=== PATIENT | male | born 1995 | race Caucasian/White ===

== ENCOUNTER 2017-10-18 19:30 | Emergency (ER) | payer OTHER ==
[~2017-10-18] VITALS: Ht 170.2 cm; Wt 59.0 kg
--- OUTSIDE RECORDS SUMMARY | 2017-10-18 19:35 | XMS REPORT | Clinical Summary ---
Author Author [facility] Organization [facility] Address [address] [place] [address] Phone Care Team Providers Care Inspector And Sorter Name Role Phone DEEPIKA ABURTO, KAYLENE PCP Conditions or Problems Problem Name Problem Code Onset Date Status Entry Date Provider Comment Standard Description Annotate SINUSITIS-ACUTE 71911861 (SNOMED CT) Inactive WILDA Cast Acute sinusitis Common migraine 14342476 (SNOMED CT) Active KAYLENE POE MD Migraine without aura Pharyngitis, acute 343755252 (SNOMED CT) Inactive Windy LY MD Acute pharyngitis SINUSITIS-ACUTE 14503364 (SNOMED CT) Inactive KAYLENE POE MD Acute sinusitis MEMORY LOSS 98074493 (SNOMED CT) Active Nicki Latham RN Amnesia SHOULDER PAIN, RIGHT M25.519 (ICD-10-CM) Active WILDA Cast Pain in unspecified shoulder COUGH 81051507 (SNOMED CT) Active Nicki Latham RN Cough PHARYNGITIS, ACUTE 892317675 (SNOMED CT) Inactive Nicki Latham RN Acute pharyngitis WELL ADOLESCENT EXAMINATION Z00.00 (ICD-10-CM) Active Gris Dye MA Encounter for general adult medical examination without abnormal findings ASTHMA, PERSISTENT, MODERATE 395337092 (SNOMED CT) Active 09/21 Gris Dye MA Moderate persistent asthma Medications Medication Instructions Start Date Stop Date Generic Name NDC Provider VENTOLIN HFA 108 (90 Base) MCG/ACT AERS TWO puffs every 4 hours as needed ALBUTEROL SULFATE 20868422935 KAYLENE POE MD PROAIR RESPICLICK 108 (90 Base) MCG/ACT AEPB Use 2 puffs every 4 hours as needed. ALBUTEROL SULFATE 77849632890 KAYLENE POE MD QVAR 80 MCG/ACT AERS Take 2 puffs twice daily BECLOMETHASONE DIPROPIONATE 56056444161 KAYLENE POE MD SINGULAIR 10 MG TABS Take one (1) tablet by mouth once a day 2015 MONTELUKAST SODIUM 13292660141 KAYLENE POE MD VENTOLIN HFA 108 (90 Base) MCG/ACT AERS TWO puffs every 4 hours as needed ALBUTEROL SULFATE 80608325750 KAYLENE POE MD DEPAKOTE 250 MG TBEC Take 1 in am and 2 at HS DIVALPROEX SODIUM 20586920392 KAYLENE POE MD SEROQUEL 25 MG TABS Take 1/2 tablet daily QUETIAPINE FUMARATE 62834688667 KAYLENE POE MD PREDNISONE 20 MG TABS Take TWO tabs in the morning and ONE tab at bedtime for 1 day, then one by mouth twice a day for 4 days PREDNISONE 99742566847 KAYLENE POE MD AMOXICILLIN-POT CLAVULANATE 875-125 MG TABS Take 1 tablet twice daily AMOXICILLIN-POT CLAVULANATE 16474035199 KAYLENE POE MD QVAR 80 MCG/ACT AERS Take 2 puffs twice daily BECLOMETHASONE DIPROPIONATE 68644815786 KAYLENE POE MD DEPAKOTE 250 MG TBEC Take ONE tablet twice a day for 1 week then 1 in am and 2 at HS DIVALPROEX SODIUM 94641199505 KAYLENE POE MD SEROQUEL 25 MG TABS Take ONE tablet daily QUETIAPINE FUMARATE 80605312860 KAYLENE POE MD LEXAPRO 10 MG TABS Take one tablet daily ESCITALOPRAM OXALATE 48854115284 KAYLENE POE MD AMOXICILLIN 500 MG CAPS Take 2 capsules twice daily until completed AMOXICILLIN 47922279954 KAYLENE POE MD FLUTICASONE PROPIONATE 50 MCG/ACT SUSP Use 1 spray to each nostril One or Two times daily. FLUTICASONE PROPIONATE 77975351360 KAYLENE POE MD ZYRTEC ALLERGY 10 MG TABS Take ONE tablet daily as needed CETIRIZINE HCL 58746632280 KAYLENE POE MD VENTOLIN HFA 108 (90 Base) MCG/ACT AERS TWO puffs every 4 hours as needed ALBUTEROL SULFATE 61947344989 KAYLENE POE MD QVAR 40 MCG/ACT AERS Use 2 puffs twice daily. BECLOMETHASONE DIPROPIONATE 84469228598 KAYLENE POE MD LORTAB 5-500 MG TABS one by mouth three times a day prn HYDROCODONE-ACETAMINOPHEN 61788579136 KAYLENE POE MD PREDNISONE 20 MG TABS Take TWO tabs in the morning and ONE tab at bedtime PREDNISONE 52204053457 KAYLENE POE MD EASIVENT MISC use with inhaler as prescribed. ( [employer] Nirmala please) RESPIRATORY THERAPY SUPPLIES 83249179745 KAYLENE POE MD PREDNISONE 20 MG TABS Take ONE tablet by mouth twice a day 09/13 PREDNISONE 04199601544 KAYLENE POE MD SINGULAIR 10 MG TABS Take one (1) tablet by mouth once a day 2013 MONTELUKAST SODIUM 73615207712 KAYLENE POE MD PREDNISONE 20 MG TABS Take ONE tablet by mouth twice a day 09/13 PREDNISONE 95432505043 KAYLENE POE MD SINGULAIR 10 MG TABS Take one (1) tablet by mouth once a day 2013 MONTELUKAST SODIUM 78466965489 KAYLENE POE MD VENTOLIN HFA 108 (90 Base) MCG/ACT AERS 2 puffs every 4 hours as needed 11/26 ALBUTEROL SULFATE 15470370578 KAYLENE POE MD ALBUTEROL SULFATE (2.5 MG/3ML) 0.083% NEBU Use 1 vial up to every four hours as needed ALBUTEROL SULFATE 96842825337 KAYLENE POE MD PREDNISONE 20 MG TABS Take ONE tablet by mouth twice a day for 3 to 5 days. PREDNISONE 74399407883 KAYLENE POE MD FLOVENT HFA 110 MCG/ACT AERO Use 2 puffs twice daily FLUTICASONE PROPIONATE HFA 16780489600 KAYLENE POE MD VENTOLIN HFA 108 (90 Base) MCG/ACT AERS TWO puffs every 4 hours as needed. PLEASE SCHEDULE PATIENT FOR A WELL CHECK UP PRIOR TO NEXT REFILL. ALBUTEROL SULFATE 04904243914 KAYLENE POE MD FLOVENT HFA 44 MCG/ACT AERO Use 2 puffs twice daily FLUTICASONE PROPIONATE HFA 46663527008 KAYLENE POE MD PREDNISONE 20 MG TABS Take ONE tablet by mouth twice a day for 5 days 09/21 PREDNISONE 15534666688 KAYLENE POE MD VENTOLIN HFA 108 (90 Base) MCG/ACT AERS TWO puffs every 4 hours as needed ALBUTEROL SULFATE 65853271507 KAYLENE POE MD FLOVENT HFA 110 MCG/ACT AERO Use 2 puffs twice daily FLUTICASONE PROPIONATE HFA 67958465453 WILDA Cast SINGULAIR 10 MG TABS Take one (1) tablet by mouth once a day 2013 MONTELUKAST SODIUM 70322369489 KAYLENE POE MD VENTOLIN HFA 108 (90 Base) MCG/ACT AERS 2 puffs every 4 hours as needed 11/26 ALBUTEROL SULFATE 45399616647 KAYLENE POE MD LORTAB 5-500 MG TABS one by mouth three times a day prn HYDROCODONE-ACETAMINOPHEN 29174130548 Nicki Latham RN SEROQUEL 25 MG TABS QUETIAPINE FUMARATE 43804193515 Nicki Latham, LEON Medications Administered No information available. Allergies, Adverse Reactions, Alerts Allergy Name Reaction Description Start Date Severity Status Provider ANNIA extreme anxiety Moderate Active WILDA Cast Results Date Name Value Unit Range Flag Description Office Visit: sore throat /ASTHMA/PHARYNGITIS RAPID STREP NEGATIVE RAPID STREP TEST Streptococcus pyogenes DNA [Presence] in Throat by Probe and target amplification method Vaccine Consent: Private Pay Vaccine CONSENTSIGND Yes consent signed Lab Report: STREP A CULTURE ONLY ZZ-GE-unk CULNEG GE use only - for LinkLogic import when terms are not otherwise specified Office Visit: 19 Yr Ck SMOK STATUS Never smoker Tobacco smoking status VAIS MEDS REVIEW LIST UP TO DATE Documentation of current medications (procedure) Rx Refill: eRx Request for VENTOLIN HFA 108 (90 BASE) MCG/ACT AERS [facility]_RR [id number]`VENTOLIN HFA 108 (90 BASE) MCG/ACT AERS`108 (90 BASE)``3 Unspecified``TWO PUFFS EVERY 4 HOURS NEEDED``3 `0`07/26/2015`07/27/2015`[facility]*`[id number]`` VENTOLIN HFA INH 18GM W/COUNT 90MCG Quantity: 54 Gram Instructions: USE 2 INHALATIONS EVERY 4 HOURS NEEDED B e-scripts messenger refill request Plan of Care Type Date Detail Appointment 02:45 PM KAYLENE POE MD, [address], [place], [address], Referral PT Eval and Treat TherapyNeri wright [place] Pending order Meningococcal conjugate vaccine, IM Pending order Administration INITIAL Vaccine Pending order Valproic acid Pending order Strep Group A Culture Pending order CBC with Differential Pending order Ferritin Level Pending order Comprehensive Metabolic panel Pending order Drug Screen, Urine Pending order Lactic Acid Pending order UA/CI (send out) Pending order Magnesium Level Pending order MRI, Head W/O Contrast Pending order CBC with Differential Pending order Culture, Blood Pending order C-Reactive Protein Pending order X-Ray, Shoulder 2 views Pending order Pertussis PCR Pending order Strep Group A Culture Pending order Strep Group A Culture Procedures Code Procedure Name Date Entry Date CPT-55213 Meningococcal conjugate vaccine, IM CPT-04867 Administration INITIAL Vaccine CPT-07392 Valproic acid CPT-64556 Rapid Strep Screen CPT-51309 Rapid Strep Screen CPT-08506 Strep Group A Culture CPT-82608 CBC with Differential CPT-59480 Ferritin Level CPT-75365 Comprehensive Metabolic panel CPT-64345 Drug Screen, Urine CPT-09245 Lactic Acid CPT-48541 UA/CI (send out) CPT-99547 Magnesium Level CPT-88759 MRI, Head W/O Contrast 56963 PT Eval and Treat CPT-69676 CBC with Differential CPT-23826 Culture, Blood CPT-36134 C-Reactive Protein CPT-79050 X-Ray, Shoulder 2 views CPT-51272 Pertussis PCR CPT-30232 Rapid Strep Screen CPT-15301 Strep Group A Culture CPT-68814 Strep Group A Culture Vital Signs Date Name Value Unit Description BMI (Body Mass Index) 19.98 kg/m2 Body Mass Index [Ratio] BP Diastolic 76 mm[Hg] blood pressure, diastolic - 8462-4 BP Systolic 120 mm[Hg] blood pressure, systolic - 8480-6 Heart Rate 92 /min pulse rate E&M - 8867-4 Height 67.75 [in_us] height E&M - 8302-2 Height 172.09 cm height in centimeters E&M Weight Measured 130 [lb_av] weight E&M - 3141-9 Weight Measured 59.09 kg weight in kilograms E&M O2 % BldC Oximetry 97 % oxygen saturation, oximetry Respiratory Rate 20 /min respiratory rate E&M - 9279-1
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
--- OUTSIDE RECORDS SUMMARY | 2017-10-18 19:36 | XMS REPORT | Clinical Summary ---
Author Author [facility] Organization [facility] Address [address] [place] [address] Phone Care Team Providers Care Laborer [employer] Name Role Phone DEEPIKA ABURTO, KAYLENE PCP Conditions or Problems Problem Name Problem Code Onset Date Status Entry Date Provider Comment Standard Description Annotate Encounter for routine adult health examination without abnormal findings Z00.00 (ICD-10-CM) Active KAYLENE POE MD Encounter for general adult medical examination without abnormal findings WELL ADOLESCENT EXAMINATION Z00.00 (ICD-10-CM) Resolved KAYLENE POE MD Encounter for general adult medical examination without abnormal findings COUGH 02018015 (SNOMED CT) Resolved KAYLENE POE MD Cough SHOULDER PAIN, RIGHT M25.519 (ICD-10-CM) Resolved KAYLENE POE MD Pain in unspecified shoulder MEMORY LOSS 88196568 (SNOMED CT) Resolved KAYLENE POE MD Amnesia SINUSITIS-ACUTE 61137440 (SNOMED CT) Inactive WILDA Cast Acute sinusitis Common migraine 54733182 (SNOMED CT) Active KAYLENE POE MD Migraine without aura Pharyngitis, acute 192953850 (SNOMED CT) Inactive Windy LY MD Acute pharyngitis SINUSITIS-ACUTE 00242883 (SNOMED CT) Inactive KAYLENE POE MD Acute sinusitis MEMORY LOSS 49644699 (SNOMED CT) Removed Nicki Latham RN Amnesia SHOULDER PAIN, RIGHT M25.519 (ICD-10-CM) Removed WILDA Cast Pain in unspecified shoulder COUGH 10654772 (SNOMED CT) Removed Nicki Latham RN Cough PHARYNGITIS, ACUTE 312570238 (SNOMED CT) Inactive Nicki Latham RN Acute pharyngitis WELL ADOLESCENT EXAMINATION Z00.00 (ICD-10-CM) Removed Gris Dye MA Encounter for general adult medical examination without abnormal findings ASTHMA, PERSISTENT, MODERATE 917667827 (SNOMED CT) Active 09/21 Gris Dye MA Moderate persistent asthma Medications Medication Instructions Start Date Stop Date Generic Name NDC Provider VENTOLIN HFA 108 (90 Base) MCG/ACT AERS TWO puffs every 4 hours as needed ALBUTEROL SULFATE 76411151425 KAYLENE POE MD QVAR 40 MCG/ACT AERS Use 2 puffs twice daily BECLOMETHASONE DIPROPIONATE 40847348385 KAYLENE POE MD VENTOLIN HFA 108 (90 Base) MCG/ACT AERS TWO puffs every 4 hours as needed ALBUTEROL SULFATE 20474666359 KAYLENE POE MD PROAIR RESPICLICK 108 (90 Base) MCG/ACT AEPB Use 2 puffs every 4 hours as needed. ALBUTEROL SULFATE 57114917544 KAYLENE POE MD QVAR 80 MCG/ACT AERS Take 2 puffs twice daily BECLOMETHASONE DIPROPIONATE 29581103732 KAYLENE POE MD SINGULAIR 10 MG TABS Take one (1) tablet by mouth once a day 2015 MONTELUKAST SODIUM 90515213360 KAYLENE POE MD VENTOLIN HFA 108 (90 Base) MCG/ACT AERS TWO puffs every 4 hours as needed ALBUTEROL SULFATE 30095497279 KAYLENE POE MD DEPAKOTE 250 MG TBEC Take 1 in am and 2 at HS DIVALPROEX SODIUM 78435252383 KAYLENE POE MD SEROQUEL 25 MG TABS Take 1/2 tablet daily QUETIAPINE FUMARATE 35324541737 KAYLENE POE MD PREDNISONE 20 MG TABS Take TWO tabs in the morning and ONE tab at bedtime for 1 day, then one by mouth twice a day for 4 days PREDNISONE 27697084515 KALYENE POE MD QVAR 80 MCG/ACT AERS Take 2 puffs twice daily BECLOMETHASONE DIPROPIONATE 22829142411 KAYLENE POE MD AMOXICILLIN-POT CLAVULANATE 875-125 MG TABS Take 1 tablet twice daily AMOXICILLIN-POT CLAVULANATE 27801634174 KAYLENE POE MD DEPAKOTE 250 MG TBEC Take ONE tablet twice a day for 1 week then 1 in am and 2 at HS DIVALPROEX SODIUM 26251034321 KAYLENE POE MD LEXAPRO 10 MG TABS Take one tablet daily ESCITALOPRAM OXALATE 28667050851 KAYLENE POE MD AMOXICILLIN 500 MG CAPS Take 2 capsules twice daily until completed AMOXICILLIN 92745544279 KAYLENE POE MD FLUTICASONE PROPIONATE 50 MCG/ACT SUSP Use 1 spray to each nostril One or Two times daily. FLUTICASONE PROPIONATE 66990964323 KAYLENE POE MD SEROQUEL 25 MG TABS Take ONE tablet daily QUETIAPINE FUMARATE 37330366397 KAYLENE POE MD ZYRTEC ALLERGY 10 MG TABS Take ONE tablet daily as needed CETIRIZINE HCL 57408055159 KAYLENE POE MD VENTOLIN HFA 108 (90 Base) MCG/ACT AERS TWO puffs every 4 hours as needed ALBUTEROL SULFATE 24760379747 KAYLENE POE MD QVAR 40 MCG/ACT AERS Use 2 puffs twice daily. BECLOMETHASONE DIPROPIONATE 05127748091 KAYLENE POE MD LORTAB 5-500 MG TABS one by mouth three times a day prn HYDROCODONE-ACETAMINOPHEN 05925603219 KAYLENE POE MD PREDNISONE 20 MG TABS Take TWO tabs in the morning and ONE tab at bedtime PREDNISONE 71831691089 KAYLENE POE MD EASIVENT MISC use with inhaler as prescribed. ( [employer] Nirmala please) RESPIRATORY THERAPY SUPPLIES 41794059311 KAYLENE POE MD PREDNISONE 20 MG TABS Take ONE tablet by mouth twice a day 09/13 PREDNISONE 40104458732 KAYLENE POE MD SINGULAIR 10 MG TABS Take one (1) tablet by mouth once a day 2013 MONTELUKAST SODIUM 18295615328 KAYLENE POE MD PREDNISONE 20 MG TABS Take ONE tablet by mouth twice a day 09/13 PREDNISONE 48742013788 KAYLENE POE MD SINGULAIR 10 MG TABS Take one (1) tablet by mouth once a day 2013 MONTELUKAST SODIUM 50029794445 KAYLENE POE MD VENTOLIN HFA 108 (90 Base) MCG/ACT AERS 2 puffs every 4 hours as needed 11/26 ALBUTEROL SULFATE 18932004607 KAYLENE POE MD ALBUTEROL SULFATE (2.5 MG/3ML) 0.083% NEBU Use 1 vial up to every four hours as needed ALBUTEROL SULFATE 16982710042 KAYLENE POE MD PREDNISONE 20 MG TABS Take ONE tablet by mouth twice a day for 3 to 5 days. PREDNISONE 54391246318 KAYLENE POE MD FLOVENT HFA 110 MCG/ACT AERO Use 2 puffs twice daily FLUTICASONE PROPIONATE HFA 88282941073 KAYLENE POE MD VENTOLIN HFA 108 (90 Base) MCG/ACT AERS TWO puffs every 4 hours as needed. PLEASE SCHEDULE PATIENT FOR A WELL CHECK UP PRIOR TO NEXT REFILL. ALBUTEROL SULFATE 63849056170 KAYLENE POE MD VENTOLIN HFA 108 (90 Base) MCG/ACT AERS TWO puffs every 4 hours as needed ALBUTEROL SULFATE 00114907023 KAYLENE POE MD FLOVENT HFA 44 MCG/ACT AERO Use 2 puffs twice daily FLUTICASONE PROPIONATE HFA 05627327895 KAYLENE POE MD PREDNISONE 20 MG TABS Take ONE tablet by mouth twice a day for 5 days 09/21 PREDNISONE 44909963571 KAYLENE POE MD SEROQUEL 25 MG TABS Take 1/2 tablet daily QUETIAPINE FUMARATE 21879842813 Geraldine Sanchez RN LORTAB 5-500 MG TABS one by mouth three times a day prn HYDROCODONE-ACETAMINOPHEN 84072102948 Nicki Latham RN SEROQUEL 25 MG TABS QUETIAPINE FUMARATE 23730715877 Nicki Latham RN DEPAKOTE 250 MG TBEC Take 1 in am and 2 at HS DIVALPROEX SODIUM 91148562055 Geraldine Sanchez RN FLOVENT HFA 110 MCG/ACT AERO Use 2 puffs twice daily FLUTICASONE PROPIONATE HFA 89190063378 WILDA Cast SINGULAIR 10 MG TABS Take one (1) tablet by mouth once a day 2013 MONTELUKAST SODIUM 88929614017 KAYLENE POE MD VENTOLIN HFA 108 (90 Base) MCG/ACT AERS 2 puffs every 4 hours as needed 11/26 ALBUTEROL SULFATE 81644756573 KAYLENE POE MD Medications Administered No information available. Allergies, Adverse Reactions, Alerts Allergy Name Reaction Description Start Date Severity Status Provider REGLAN extreme anxiety Moderate Active WILDA Cast Results [...] otherwise specified Office Visit: 19 Yr Ck MEDS REVIEW LIST UP TO DATE Documentation of current medications (procedure) Rx Refill: eRx Request for VENTOLIN HFA 108 (90 BASE) MCG/ACT AERS [facility]_ [id number]`VENTOLIN HFA 108 (90 BASE) MCG/ACT AERS`108 (90 BASE)``3 Unspecified``TWO PUFFS EVERY 4 HOURS NEEDED``3 `0`07/26/2015`07/27/2015`[facility]*`[id number]`` VENTOLIN HFA INH 18GM W/COUNT 90MCG Quantity: 54 Gram Instructions: USE 2 INHALATIONS EVERY 4 HOURS NEEDED B e-scripts messenger refill request Office Visit: 20 yr ck up SMOK STATUS Never smoker Tobacco smoking status ILIS Plan of Care Type Date Detail Referral PT Eval and Treat Kia [place], [place] Pending order HPV 9 Pending order Administration INITIAL Vaccine Pending order Meningococcal conjugate vaccine, IM Pending [...] Culture Pending order Strep Group A Culture Patient education Handouts/mdk/Clinical Visit Summary Procedures Code Procedure Name Date Entry Date CPT-39650 HPV 9 CPT-66790 Administration INITIAL Vaccine CPT-58204 Meningococcal conjugate vaccine, IM CPT-21577 Administration INITIAL Vaccine CPT-14528 Valproic acid CPT-83583 Rapid Strep Screen CPT-97698 Rapid Strep Screen CPT-22836 Strep Group A Culture CPT-18129 CBC with Differential CPT-40955 Ferritin Level CPT-52906 Comprehensive Metabolic panel CPT-06991 Drug Screen, Urine CPT-46952 Lactic Acid CPT-45395 UA/CI (send out) CPT-05471 Magnesium Level CPT-04024 MRI, Head W/O Contrast 81588 PT Eval and Treat CPT-95903 CBC with Differential CPT-80941 Culture, Blood CPT-57711 C-Reactive Protein CPT-32417 X-Ray, Shoulder 2 views CPT-24145 Pertussis PCR CPT-54816 Rapid Strep Screen CPT-35895 Strep Group A Culture CPT-81754 Strep Group A Culture Vital Signs Date Name Value Unit Description BMI (Body Mass Index) 19.00 kg/m2 Body Mass Index [Ratio] BP Diastolic 60 mm[Hg] blood pressure, diastolic - 8462-4 BP Systolic 102 mm[Hg] blood pressure, systolic - 8480-6 Heart Rate 80 /min pulse rate E&M - 8867-4 Height 68 [in_us] height E&M - 8302-2 Height 172.72 cm height in centimeters E&M Weight Measured 124.50 [lb_av] weight E&M - 3141-9 Respiratory Rate 20 /min respiratory rate E&M - 9279-1
--- OUTSIDE RECORDS SUMMARY | 2017-10-18 19:36 | XMS REPORT | Clinical Summary ---
Author Author [facility] Organization [facility] Address [address] [place] [address] Phone Care Team Providers Care Scientific Editor Name Role Phone DEEPIKA ABURTO, KAYLENE PCP Conditions or Problems Problem Name Problem Code Onset Date Status Entry Date Provider Comment Standard Description Annotate SINUSITIS-ACUTE 67519358 (SNOMED CT) Inactive WILDA Cast Acute sinusitis Common migraine 77346058 (SNOMED CT) Active KAYLENE POE MD Migraine without aura Pharyngitis, acute 898818316 (SNOMED CT) Inactive Windy LY MD Acute pharyngitis SINUSITIS-ACUTE 54846568 (SNOMED CT) Inactive KAYLENE POE MD Acute sinusitis MEMORY LOSS 18529364 (SNOMED CT) Active Nicki Latham RN Amnesia SHOULDER PAIN, RIGHT M25.519 (ICD-10-CM) Active WILDA Cast Pain in unspecified shoulder COUGH 90622892 (SNOMED CT) Active Nicki Latham RN Cough PHARYNGITIS, ACUTE 677336767 (SNOMED CT) Inactive Nicki Latham RN Acute pharyngitis WELL ADOLESCENT EXAMINATION Z00.00 (ICD-10-CM) Active Gris Dye MA Encounter for general adult medical examination without abnormal findings ASTHMA, PERSISTENT, MODERATE 951446017 (SNOMED CT) Active 09/21 Gris Dye MA Moderate persistent asthma Medications Medication Instructions Start Date Stop Date Generic Name NDC Provider VENTOLIN HFA 108 (90 Base) MCG/ACT AERS TWO puffs every 4 hours as needed ALBUTEROL SULFATE 72359794073 KAYLENE POE MD PROAIR RESPICLICK 108 (90 Base) MCG/ACT AEPB Use 2 puffs every 4 hours as needed. ALBUTEROL SULFATE 85048049717 KAYLENE POE MD QVAR 80 MCG/ACT AERS Take 2 puffs twice daily BECLOMETHASONE DIPROPIONATE 55288429531 KAYLENE POE MD SINGULAIR 10 MG TABS Take one (1) tablet by mouth once a day 2015 MONTELUKAST SODIUM 72900945109 KAYLENE POE MD VENTOLIN HFA 108 (90 Base) MCG/ACT AERS TWO puffs every 4 hours as needed ALBUTEROL SULFATE 01298502627 KAYLENE POE MD DEPAKOTE 250 MG TBEC Take 1 in am and 2 at HS DIVALPROEX SODIUM 28940636892 KAYLENE POE MD SEROQUEL 25 MG TABS Take 1/2 tablet daily QUETIAPINE FUMARATE 13040281467 KAYLENE POE MD PREDNISONE 20 MG TABS Take TWO tabs in the morning and ONE tab at bedtime for 1 day, then one by mouth twice a day for 4 days PREDNISONE 66070886375 KAYLENE POE MD AMOXICILLIN-POT CLAVULANATE 875-125 MG TABS Take 1 tablet twice daily AMOXICILLIN-POT CLAVULANATE 58298938574 KAYLENE POE MD QVAR 80 MCG/ACT AERS Take 2 puffs twice daily BECLOMETHASONE DIPROPIONATE 87059398469 KAYLENE POE MD DEPAKOTE 250 MG TBEC Take ONE tablet twice a day for 1 week then 1 in am and 2 at HS DIVALPROEX SODIUM 83044449081 KAYLENE POE MD SEROQUEL 25 MG TABS Take ONE tablet daily QUETIAPINE FUMARATE 37926944366 KAYLENE POE MD LEXAPRO 10 MG TABS Take one tablet daily ESCITALOPRAM OXALATE 03661304761 KAYLENE POE MD AMOXICILLIN 500 MG CAPS Take 2 capsules twice daily until completed AMOXICILLIN 34728270181 KAYLENE POE MD FLUTICASONE PROPIONATE 50 MCG/ACT SUSP Use 1 spray to each nostril One or Two times daily. FLUTICASONE PROPIONATE 45894975836 KAYLENE POE MD ZYRTEC ALLERGY 10 MG TABS Take ONE tablet daily as needed CETIRIZINE HCL 94839103090 KAYLENE POE MD VENTOLIN HFA 108 (90 Base) MCG/ACT AERS TWO puffs every 4 hours as needed ALBUTEROL SULFATE 29224573252 KAYLENE POE MD QVAR 40 MCG/ACT AERS Use 2 puffs twice daily. BECLOMETHASONE DIPROPIONATE 11684472469 KAYLENE POE MD LORTAB 5-500 MG TABS one by mouth three times a day prn HYDROCODONE-ACETAMINOPHEN 25314588368 KAYLENE POE MD PREDNISONE 20 MG TABS Take TWO tabs in the morning and ONE tab at bedtime PREDNISONE 96044514125 KAYLENE POE MD EASIVENT MISC use with inhaler as prescribed. ( [place] Nirmala please) RESPIRATORY THERAPY SUPPLIES 30797659803 KAYLENE POE MD PREDNISONE 20 MG TABS Take ONE tablet by mouth twice a day 09/13 PREDNISONE 60820984382 KAYLENE POE MD SINGULAIR 10 MG TABS Take one (1) tablet by mouth once a day 2013 MONTELUKAST SODIUM 57318185237 KAYLENE POE MD PREDNISONE 20 MG TABS Take ONE tablet by mouth twice a day 09/13 PREDNISONE 86022545500 KAYLENE POE MD SINGULAIR 10 MG TABS Take one (1) tablet by mouth once a day 2013 MONTELUKAST SODIUM 78198239230 KAYLENE POE MD VENTOLIN HFA 108 (90 Base) MCG/ACT AERS 2 puffs every 4 hours as needed 11/26 ALBUTEROL SULFATE 70791256457 KAYLENE POE MD ALBUTEROL SULFATE (2.5 MG/3ML) 0.083% NEBU Use 1 vial up to every four hours as needed ALBUTEROL SULFATE 29413506020 KAYLENE POE MD PREDNISONE 20 MG TABS Take ONE tablet by mouth twice a day for 3 to 5 days. PREDNISONE 68894755499 KAYLENE POE MD FLOVENT HFA 110 MCG/ACT AERO Use 2 puffs twice daily FLUTICASONE PROPIONATE HFA 47664457661 KAYLENE POE MD VENTOLIN HFA 108 (90 Base) MCG/ACT AERS TWO puffs every 4 hours as needed. PLEASE SCHEDULE PATIENT FOR A WELL CHECK UP PRIOR TO NEXT REFILL. ALBUTEROL SULFATE 66390087587 KAYLENE POE MD FLOVENT HFA 44 MCG/ACT AERO Use 2 puffs twice daily FLUTICASONE PROPIONATE HFA 41673125638 KAYLENE POE MD PREDNISONE 20 MG TABS Take ONE tablet by mouth twice a day for 5 days 09/21 PREDNISONE 25945151774 KAYLENE POE MD VENTOLIN HFA 108 (90 Base) MCG/ACT AERS TWO puffs every 4 hours as needed ALBUTEROL SULFATE 78410067240 KAYLENE POE MD FLOVENT HFA 110 MCG/ACT AERO Use 2 puffs twice daily FLUTICASONE PROPIONATE HFA 82969467805 WILDA Cast SINGULAIR 10 MG TABS Take one (1) tablet by mouth once a day 2013 MONTELUKAST SODIUM 74133943265 KAYLNEE POE MD VENTOLIN HFA 108 (90 Base) MCG/ACT AERS 2 puffs every 4 hours as needed 11/26 ALBUTEROL SULFATE 24855313855 KAYLENE POE MD LORTAB 5-500 MG TABS one by mouth three times a day prn HYDROCODONE-ACETAMINOPHEN 01273278639 Nicki Latham RN SEROQUEL 25 MG TABS QUETIAPINE FUMARATE 53522382126 Nicki Latham, LEON Medications Administered No information [...] SMOK STATUS Never smoker Tobacco smoking status TXIS MEDS REVIEW LIST UP TO DATE Documentation of current medications (procedure) Rx Refill: eRx Request for VENTOLIN HFA 108 (90 BASE) MCG/ACT AERS [facility]_RR [id number]`VENTOLIN HFA 108 (90 BASE) MCG/ACT AERS`108 (90 BASE)``3 Unspecified``TWO PUFFS EVERY 4 HOURS NEEDED``3 `0`07/26/2015`07/27/2015`[facility]*`[id number]`` VENTOLIN HFA INH 18GM W/COUNT 90MCG Quantity: 54 Gram Instructions: USE 2 INHALATIONS EVERY 4 HOURS NEEDED B e-scripts messenger refill request Plan of Care Type Date Detail Referral PT Eval and Treat Neri Adam [place] Pending order Meningococcal conjugate vaccine, IM [...] Procedures Code Procedure Name Date Entry Date CPT-84436 Meningococcal conjugate vaccine, IM CPT-47141 Administration INITIAL Vaccine CPT-04894 Valproic acid CPT-47157 Rapid Strep Screen CPT-98927 Rapid Strep Screen CPT-57534 Strep Group A Culture CPT-88156 CBC with Differential CPT-75980 Ferritin Level CPT-76611 Comprehensive Metabolic panel CPT-58533 Drug Screen, Urine CPT-78453 Lactic Acid CPT-34944 UA/CI (send out) CPT-10996 Magnesium Level CPT-43798 MRI, Head W/O Contrast 01441 PT Eval and Treat CPT-96819 CBC with Differential CPT-93320 Culture, Blood CPT-97023 C-Reactive Protein CPT-09932 X-Ray, Shoulder 2 views CPT-11875 Pertussis PCR CPT-78919 Rapid Strep Screen CPT-04192 Strep Group A Culture CPT-82021 Strep Group A Culture Vital Signs Date [...]
[2017-10-18] MEDS ORDERED: RT-ALBUTEROL/IPRATROPIUM 3 ML (DUONEB) VIAL INH ONE ×2 (19:45→20:45)
[2017-10-18] MEDS ORDERED: methylPREDNISolone 125 MG (Solu-MEDROL) VIAL IVP ONE (19:45)
[2017-10-18] MEDS ORDERED: KETOROLAC 30 MG/ML VIAL IVP ONE (19:45)
--- NOTE | 2017-10-18 19:51 | ED Chest Pain ---
General Stated Complaint: CHEST PAIN Source: patient Exam Limitations: no limitations History of Present Illness Date Seen by Provider: Oct 18, 2017 Time Seen by Provider: 19:49 Initial Comments To ER with reports of central chest pain sharp in character associated with shortness of breath. This began a couple of hours ago and has gotten progressively worse. History of asthma. No fevers or chills. No palpitations but was recently diagnosed with SVT and is currently wearing an event monitor. This is a biological male in transition to female, on spironolactone and estradiol. Prefers to be called Tosin. Denies any unilateral leg swelling. Severity/Quality: moderate Allergies and Home Medications Allergies Coded Allergies: No Known Drug Allergies (Unverified , 10/18/17) Patient Home Medication List Home Medication List Reviewed: Yes Review of Systems Review of Systems Constitutional: see HPI; No chills, No fever EENTM: No Symptoms Reported Respiratory: See HPI, Cough, Shortness of Air, Wheezing Cardiovascular: See HPI, Chest Pain Gastrointestinal: See HPI Genitourinary: No Symptoms Reported Musculoskeletal: no symptoms reported Skin: no symptoms reported Psychiatric/Neurological: No Symptoms Reported Endocrine: No Symptoms Reported Hematologic/Lymphatic: No Symptoms Reported Past Zqgowwr-Bsxzsc-Zmbrly Hx Patient Social History Recent Foreign Travel: No Contact w/Someone Who Travel: No Physical Exam Vital Signs Vital Signs - First Documented 10/18/17 19:46 Pulse Ox 97 O2 Delivery Room Air Capillary Refill : Height, Weight, BMI Height: '" Weight: lbs. oz. kg; BMI Method: General Appearance: No Apparent Distress, WD/WN, Anxious (very tearful, speaks very softly and does not make eye contact.) HEENT: PERRL/EOMI, TMs Normal Neck: Full Range of Motion, Normal Inspection Respiratory: No Accessory Muscle Use, No Respiratory Distress, Decreased Breath Sounds Cardiovascular: Regular Rate, Rhythm, Normal Peripheral Pulses Gastrointestinal: Normal Bowel Sounds, Non Tender, Soft Extremity: Normal Capillary Refill, Normal Inspection, No Pedal Edema Neurologic/Psychiatric: Alert, Oriented x3 Skin: Normal Color, Warm/Dry Progress/Results/Core Measures Results/Orders Lab Results Laboratory Tests Test 10/18/17 19:43 Range/Units White Blood Count 9.8 4.3-11.0 10^3/uL Red Blood Count 4.72 4.35-5.85 10^6/uL Hemoglobin 14.9 13.3-17.7 G/DL Hematocrit 42 40-54 % Mean Corpuscular Volume 88 80-99 FL Mean Corpuscular Hemoglobin 32 25-34 PG Mean Corpuscular Hemoglobin Concent 36 32-36 G/DL Red Cell Distribution Width 12.8 10.0-14.5 % Platelet Count 283 130-400 10^3/uL Mean Platelet Volume 10.0 7.4-10.4 FL Neutrophils (%) (Auto) 45 42-75 % Lymphocytes (%) (Auto) 34 12-44 % Monocytes (%) (Auto) 8 0-12 % Eosinophils (%) (Auto) 13 H 0-10 % Basophils (%) (Auto) 1 0-10 % Neutrophils # (Auto) 4.4 1.8-7.8 X 10^3 Lymphocytes # (Auto) 3.3 1.0-4.0 X 10^3 Monocytes # (Auto) 0.8 0.0-1.0 X 10^3 Eosinophils # (Auto) 1.3 H 0.0-0.3 10^3/uL Basophils # (Auto) 0.1 0.0-0.1 10^3/uL D-Dimer 0.24 0.00-0.49 UG/ML Sodium Level 139 135-145 MMOL/L Potassium Level 4.1 3.6-5.0 MMOL/L Chloride Level 104 98-107 MMOL/L Carbon Dioxide Level 24 21-32 MMOL/L Anion Gap 11 5-14 MMOL/L Blood Urea Nitrogen 11 7-18 MG/DL Creatinine 0.75 0.60-1.30 MG/DL Estimat Glomerular Filtration Rate > 60 BUN/Creatinine Ratio 15 Glucose Level 66 L 70-105 MG/DL Calcium Level 9.4 8.5-10.1 MG/DL Corrected Calcium 9.1 8.5-10.1 MG/DL Total Bilirubin 0.6 0.1-1.0 MG/DL Aspartate Amino Transf (AST/SGOT) 21 5-34 U/L Alanine Aminotransferase (ALT/SGPT) 22 0-55 U/L Alkaline Phosphatase 90 40-136 U/L Total Protein 6.4 6.4-8.2 GM/DL Albumin 4.4 3.2-4.5 GM/DL My Orders Orders - CESAR VERONICA [employer] DISPOSAL AGENT Cbc With Automated Diff (10/18/17 19:38) Comprehensive Metabolic Panel (10/18/17 19:38) Fibrin Degradation Products (10/18/17 19:38) Chest Pa/Lat (2 View) (10/18/17 19:38) Iv Heplock-Insert (Order) (10/18/17 19:38) Methylprednisolone Sod Succ (Solu-Medrol (10/18/17 19:45) Albuterol/Ipra Inhalation Soln (Duoneb I (10/18/17 19:45) Svn Small Volume Nebulizer (10/18/17 19:38) Lorazepam Injection (Ativan Injection) (10/18/17 19:45) Ketorolac Injection (Toradol Injection) (10/18/17 19:45) Lorazepam Injection (Ativan Injection) (10/18/17 20:15) Medications Given in ED Current Medications Medications Dose Ordered Sig/Venkatesh Route Start Time Stop Time Status Last Admin Dose Admin Albuterol/ Ipratropium 3 ml ONCE ONCE INH 10/18/17 19:45 10/18/17 19:46 DC 10/18/17 19:46 3 ML Ketorolac Tromethamine 30 mg ONCE ONCE IVP 10/18/17 19:45 10/18/17 19:46 DC 10/18/17 19:56 30 MG Lorazepam 0.5 mg ONCE PRN IVP 10/18/17 19:45 10/18/17 20:03 0.5 MG Methylprednisolone Sodium Succinate 125 mg ONCE ONCE IVP 10/18/17 19:45 10/18/17 19:46 DC 10/18/17 19:56 125 MG Vital Signs/I&O 10/18/17 19:46 Pulse Ox 97 O2 Delivery Room Air Departure Communication (Admissions) 2034-patient is still tearful. Refuses a second dose of Ativan and states that she only needs her emotional support dog Impression Primary Impression: Asthma exacerbation Additional Impressions: Chest pain Anxiety Disposition: 01 HOME, SELF-CARE Condition: Stable Departure-Patient Inst. Decision time for Depature: 20:38 Referrals: NO,LOCAL PHYSICIAN (PCP/Family) Primary Care Physician Patient Instructions: Asthma in Adults, Chest Pain Add. Discharge Instructions: 1. Return to ER for any concerns 2. Follow-up with your doctor next week 3. Steroids as directed. Inhaler 2 puffs every 4 hours and additional 2 puffs every 2 hours as needed. Scripts Prednisone (Prednisone) 20 Mg Tab 40 MG PO ONCE, #6 TAB Prov: CESAR VERONICA APRN 10/18/17 CESAR VERONICA APRN Oct 18, 2017 19:51
[2017-10-18] MEDS: LORazepam INJ 2 MG/ML (ATIVAN) VIAL IVP PRN ×3 (19:55→20:35)
[2017-10-18] MEDS ORDERED: LORazepam INJ 2 MG/ML (ATIVAN) VIAL IVP PRN (20:15)
[2017-10-18 20:16] LABS: BASOPHILS # (AUTO) 0.1 10^3/uL (0.0-0.1); BASOPHILS % (AUTO) 1 % (0-10); EOSINOPHILS # (AUTO) 1.3 10^3/uL (0.0-0.3); EOSINOPHILS % (AUTO) 13 % (0-10); HEMATOCRIT 42 % (40-54); HEMOGLOBIN 14.9 G/DL (13.3-17.7); LYMPHOCYTES # (AUTO) 3.3 X 10^3 (1.0-4.0); LYMPHOCYTES % (AUTO) 34 % (12-44); MEAN CORPUSCULAR HEMOGLOBIN 32 PG (25-34); MEAN CORPUSCULAR HGB CONC 36 G/DL (32-36); MEAN CORPUSCULAR VOLUME 88 FL (80-99); MONOCYTES # (AUTO) 0.8 X 10^3 (0.0-1.0); MONOCYTES % (AUTO) 8 % (0-12); NEUTROPHILS # (AUTO) 4.4 X 10^3 (1.8-7.8); NEUTROPHILS % (AUTO) 45 % (42-75); PLATELET COUNT 283 10^3/uL (130-400); RED BLOOD COUNT 4.72 10^6/uL (4.35-5.85); RED CELL DISTRIBUTION WIDTH 12.8 % (10.0-14.5); WHITE BLOOD COUNT 9.8 10^3/uL (4.3-11.0)
--- NOTE | 2017-10-18 20:32 | Diagnostic Imaging Report ---
EXAMINATION: Chest (PA and lateral). CLINICAL INDICATION: 21-year-old male, cough, chest pain. COMPARISON: None. FINDINGS: Heart size and mediastinal contours are unremarkable. There is no identified pneumothorax. There is no pleural effusion. There is no identified focal airspace consolidation. IMPRESSION: No identified acute cardiopulmonary abnormality. Dictated by: Dictated on workstation # [id number]
[2017-10-18 20:35] LABS: ALANINE AMINOTRANSFERASE 22 U/L (0-55); ALBUMIN 4.4 GM/DL (3.2-4.5); ALKALINE PHOSPHATASE 90 U/L (40-136); BILIRUBIN,TOTAL 0.6 MG/DL (0.1-1.0); BUN/CREATININE RATIO 15; CALCIUM 9.4 MG/DL (8.5-10.1); CARBON DIOXIDE 24 MMOL/L (21-32); CHLORIDE 104 MMOL/L (98-107); CREATININE SERUM 0.75 MG/DL (0.60-1.30); GFR ESTIMATED > 60; GLUCOSE 66 MG/DL (70-105); POTASSIUM 4.1 MMOL/L (3.6-5.0); SODIUM 139 MMOL/L (135-145); TOTAL PROTEIN 6.4 GM/DL (6.4-8.2)
[2017-10-18] MEDS ORDERED: PRD20T PO (20:39)
== END 2017-10-18 22:00 | disposition home or self-care (01) ==
LOC: EDUNIT# 19:30 → ER 19:32
DX: J45.901 Unspecified asthma with (acute) exacerbation (principal); R07.89 Other chest pain; F41.9 Anxiety disorder, unspecified
CPT/HCPCS: 36415; 71046; 80053; 85025; 85379; 94640; 96374; 96375

== ENCOUNTER 2017-10-30 08:53 | Outpatient (RCR) | payer OTHER ==
[~2017-10-30 08:53] MED LIST: PRD20T PO
== END 2017-11-04 | disposition home or self-care (01) ==
LOC: CARD 08:53
PROVIDERS: ATTEND Internal Medicine
DX: R55 Syncope and collapse (principal); I47.1 Supraventricular tachycardia
CPT/HCPCS: 93270

== ENCOUNTER 2017-11-17 12:00 | Outpatient (RCR) | payer OTHER ==
[2017-11-21] MEDS ORDERED: PRD20T PO ×2 (15:27→15:47)
[2017-11-21] MEDS ORDERED: ESTR2TAB (15:41)
[2017-11-21] MEDS ORDERED: ALBU18HF2 (15:41)
[2017-11-21] MEDS ORDERED: SPIR100T4 (15:41)
[2017-11-21] MEDS ORDERED: DULO30CA48 (15:41)
== END 2018-02-03 ==
LOC: CARD 12:00
PROVIDERS: ATTEND Internal Medicine
DX: R55 Syncope and collapse (principal); I47.1 Supraventricular tachycardia

== ENCOUNTER 2017-11-21 15:20 | Emergency (ER) | payer OTHER ==
[~2017-11-21] VITALS: Ht 170.2 cm; Wt 59.0 kg
[~2017-11-21 15:20] MED LIST changes: +RT-ALBUTEROL/IPRATROPIUM 3 ML (DUONEB) VIAL ONE; +methylPREDNISolone 125 MG (Solu-MEDROL) VIAL ONE
--- OUTSIDE RECORDS SUMMARY | 2017-11-21 15:25 | XMS REPORT | Continuity of Care Document ---
Author Author [facility] Organization [facility] Address Unknown Phone Unavailable Allergies Active Description Code Type Severity Reaction Onset Reported/Identified Relationship to Patient Clinical Status Yes Reglan Drug N/A N/ A Yes METOCLOPRAMIDE 4868 DRUG INGREDI N/A Other 01/14/2014 Yes No Known Drug Allergies [id number] Drug Allergy Unknown N/A 10/18/2017 Medications There is no data. Problems Date [...] routine adult health examination without abnormal findings 10/18/2017 CESAR VERONICA APRN Ot F41.9 ANXIETY DISORDER, UNSPECIFIED 10/18/2017 CESAR VERONICA WAREHOUSE P[employer]AGING SUPERVISOR Ot J45.901 UNSPECIFIED ASTHMA WITH (ACUTE) EXACERBA 10/18/2017 CESAR VERONICA APRN Ot R07.89 OTHER CHEST PAIN 10/22/2017 CESAR VERONICA APRN Ot F41.9 ANXIETY DISORDER, UNSPECIFIED 10/22/2017 CESAR VERONICA [employer]HOU[employer] P[employer]AGING SUPERVISOR Ot J45.901 UNSPECIFIED ASTHMA WITH (ACUTE) EXACERBA 10/22/2017 CESAR VERONICA [employer]HOUSE P[employer]AGING SUPERVISOR Ot R07.89 OTHER CHEST PAIN 11/04/2017 SHERRELL ABURTO, MASHA Zamora Ot I47.1 SUPRAVENTRICULAR TACHYCARDIA 11/04/2017 SHERRELL ABURTO, MASHA Zamora Ot R55 SYNCOPE AND COLLAPSE Procedures There is no data. Results Test Result Range Complete blood count (CBC) with automated white blood cell (WBC) differential - 10/18/17 19:43 Blood leukocytes automated count (number/volume) 9.8 10*3/uL 4.3-11.0 Blood erythrocytes automated count (number/volume) 4.72 10*6/uL 4.35-5.85 Venous blood hemoglobin measurement (mass/volume) 14.9 g/dL 13.3-17.7 Blood hematocrit (volume fraction) 42 % 40-54 Automated erythrocyte mean corpuscular volume 88 [foz_us] 80-99 Automated erythrocyte mean corpuscular hemoglobin (mass per erythrocyte) 32 pg 25-34 Automated erythrocyte mean corpuscular hemoglobin concentration measurement ( mass/volume) 36 g/dL 32-36 Automated erythrocyte distribution width ratio 12.8 % 10.0-14.5 Automated blood platelet count (count/volume) 283 10*3/uL 130-400 Automated blood platelet mean volume measurement 10.0 [foz_us] 7.4-10.4 Automated blood neutrophils/100 leukocytes 45 % 42-75 Automated blood lymphocytes/100 leukocytes 34 % 12-44 Blood monocytes/100 leukocytes 8 % 0-12 Automated blood eosinophils/100 leukocytes 13 % 0-10 Automated blood basophils/100 leukocytes 1 % 0-10 Blood neutrophils automated count (number/volume) 4.4 10*3 1.8-7.8 Blood lymphocytes automated count (number/volume) 3.3 10*3 1.0-4.0 Blood monocytes automated count (number/volume) 0.8 10*3 0.0-1.0 Automated eosinophil count 1.3 10*3/uL 0.0-0.3 Automated blood basophil count (count/volume) 0.1 10*3/uL 0.0-0.1 Fibrin D-dimer FEU measurement in platelet poor plasma (mass/volume) - 19:43 Fibrin D-dimer FEU measurement in platelet poor plasma (mass/volume) 0.24 ug/mL 0.00-0.49 Comprehensive metabolic panel - 10/18/17 19:43 Serum or plasma sodium measurement (moles/volume) 139 mmol/L 135-145 Serum or plasma potassium measurement (moles/volume) 4.1 mmol/L 3.6-5.0 Serum or plasma chloride measurement (moles/volume) 104 mmol/L 98-107 Carbon dioxide 24 mmol/L 21-32 Serum or plasma anion gap determination (moles/volume) 11 mmol/L 5-14 Serum or plasma urea nitrogen measurement (mass/volume) 11 mg/dL 7-18 Serum or plasma creatinine measurement (mass/volume) 0.75 mg/dL 0.60-1.30 Serum or plasma urea nitrogen/creatinine mass ratio 15 NRG Serum or plasma creatinine measurement with calculation of estimated glomerular filtration rate > NRG Serum or plasma glucose measurement (mass/volume) 66 mg/dL 70-105 Serum or plasma calcium measurement (mass/volume) 9.4 mg/dL 8.5-10.1 Serum or plasma total bilirubin measurement (mass/volume) 0.6 mg/dL 0.1-1.0 Serum or plasma alkaline phosphatase measurement (enzymatic activity/volume) 90 U/L 40-136 Serum or plasma aspartate aminotransferase measurement (enzymatic activity/ volume) 21 U/L 5-34 Serum or plasma alanine aminotransferase measurement (enzymatic activity/volume ) 22 U/L 0-55 Serum or plasma protein measurement (mass/volume) 6.4 g/dL 6.4-8.2 Serum or plasma albumin measurement (mass/volume) 4.4 g/dL 3.2-4.5 CALCIUM CORRECTED 9.1 mg/dL 8.5-10.1 Encounters ACCT No. Visit Date/Time Discharge Status Pt. Type Provider Facility Loc./Unit Complaint [id number] 02/16/2014 12:35:00 02/16/2014 23:59:00 DIS Outpatient Kayode Davison Guarantor/person RAVI ACUTE PHARYNGITIS [id number] 12/28/2013 17:26:00 Document Registration [id number] 11/11/2017 12:00:00 11/11/2017 23:59:59 CLS Outpatient MASHA WYNNE MD Via [facility] CARD SYNCOPE R55 [id number] 10/30/2017 08:53:00 11/04/2017 00:01:00 DIS Outpatient MASHA WYNNE MD [facility] CARD SYNCOPE R55 [id number] 10/18/2017 19:32:00 10/18/2017 22:00:00 DIS Emergency CESAR VERONICA APRN [facility] ER CHEST PAIN [id number] 07/31/2016 08:22:01 07/31/2016 23:59:59 [facility] Outpatient [id number] 02/16/2014 12:35:13 ACT Document Registration
[2017-11-21] MEDS ORDERED: PRD20T PO ×2 (15:27→15:47)
--- NOTE | 2017-11-21 15:28 | ED Dyspnea ---
General Stated Complaint: SOB, HEART CONDITION Source of Information: Patient Exam Limitations: No Limitations History of Present Illness Date Seen by Provider: Nov 21, 2017 Time Seen by Provider: 15:25 Initial Comments To ER with reports of shortness of breath and wheezing that began about 10 minutes ago. Timing/Duration: 1-3 Hours Severity: Moderate Prior Episodes/Possible Cause: Occasional Episodes Modifying Factors: Improves With Albuterol Inhaler Associated Symptoms: Cough Allergies and Home Medications Allergies Coded Allergies: metoclopramide (Verified Allergy, Unknown, 11/21/17) Home Medications Prednisone 20 Mg Tab, 40 MG PO ONCE Prescribed by: CESAR VERONICA on 10/18/172038 Prednisone 20 Mg Tab, 40 MG PO DAILY Prescribed by: CESAR VERONICA on 11/21/17 1527 Patient Home Medication List Home Medication List Reviewed: Yes Review of Systems Review of Systems Constitutional: see HPI EENTM: see HPI Respiratory: see HPI, short of breath, wheezing Cardiovascular: no symptoms reported Genitourinary: no symptoms reported Musculoskeletal: no symptoms reported Skin: no symptoms reported Psychiatric/Neurological: No Symptoms Reported Endocrine: No Symptoms Reported Hematologic/Lymphatic: No Symptoms Reported Past Otfntrn-Cscong-Tqxaed Hx Patient Social History 2nd Hand Smoke Exposure: No Recent Foreign Travel: No Contact w/Someone Who Travel: No Recent Hopitalizations: No Seasonal Allergies Seasonal Allergies: No Past Medical History Surgeries: No Respiratory: Yes Asthma Cardiac: Yes (svt) Genitourinary: No Gastrointestinal: No Musculoskeletal: No Endocrine: No HEENT: No Cancer: No Psychosocial: Yes (dissociative id disorder) Integumentary: No Adverse Reaction/Blood Tranf: No Physical Exam Vital Signs Vital Signs - First Documented 11/21/17 15:31 Temp 96.7 Pulse 121 Resp 24 B/P (MAP) 122/78 Pulse Ox 99 O2 Delivery Isolette O2 Flow Rate 10.00 Capillary Refill : Height, Weight, BMI Height: 5'7.00" Weight: 130lbs. oz. 58.782200az; 14.06 BMI Method:Stated General Appearance: No Apparent Distress, WD/WN, Other (sitting upright in bed in tripod position and oxygen saturation 89% on room air, significantly diminished lung sounds throughout with wheezing. DuoNeb started. Patient refuses IV start.) HEENT: PERRL/EOMI, TMs Normal Neck: Full Range of Motion, Normal Inspection Respiratory: No Accessory Muscle Use, No Respiratory Distress, Decreased Breath Sounds, Respiratory Distress, Wheezing Cardiovascular: Normal Peripheral Pulses, Tachycardia Gastrointestinal: Non Tender, Soft Neurologic/Psychiatric: Alert, Oriented x3 Skin: Normal Color, Warm/Dry Progress/Results/Core Measures Results/Orders My Orders Orders - CESAR VERONICA APRN Albuterol/Ipra Inhalation Soln (Duoneb I (11/21/17 15:30) Prednisone Tablet (Deltasone Tablet) (11/21/17 15:30) Svn Small Volume Nebulizer (11/21/17 15:24) Methylprednisolone Sod Succ (Solu-Medrol (11/21/17 15:20) Albuterol/Ipra Inhalation Soln (Duoneb I (11/21/17 15:20) Chest 1 View, Ap/Pa Only (11/21/17 15:28) Ekg Tracing (11/21/17 15:29) Continuous Ekg Monitoring (11/21/17 15:29) Medications Given in ED Current Medications Medications Dose Ordered Sig/Venkatesh Route Start Time Stop Time Status Last Admin Dose Admin Albuterol/ Ipratropium 6 ml ONCE ONCE INH 11/21/17 15:30 11/21/17 15:31 DC 11/21/17 15:37 6 ML Vital Signs/I&O 11/21/17 15:31 Temp 96.7 Pulse 121 Resp 24 B/P (MAP) 122/78 Pulse Ox 99 O2 Delivery Isolette O2 Flow Rate 10.00 Departure Communication (Admissions) 5437-feels much better, oxygen saturation 95% on room air, no accessory muscle use, good air movement and no wheezing. We will discharged home per his request at this time without doing any further workup, again, per his request. Impression Primary Impression: Asthma exacerbation Disposition: 01 HOME, SELF-CARE Condition: Stable Departure-Patient Inst. Decision time for Depature: 15:26 Referrals: [facility] (PCP/Family) Primary Care Physician Patient Instructions: Asthma in Adults Add. Discharge Instructions: 1. Steroids as directed 2. Inhaler as directed 3. Follow-up your regular doctor or [employer] [facility] within 48 hours for recheck. Scripts Prednisone (Prednisone) 20 Mg Tab 40 MG PO DAILY, #4 TAB Prov: CESAR VERONICA APRN 10/17/18 Work/School Note: Work Release Form Date Seen in the Emergency Department: Nov 21, 2017 Return to Work: Nov 23, 2017 CESAR VERONICA APRN Nov 21, 2017 15:28
[2017-11-21] MEDS ORDERED: RT-ALBUTEROL/IPRATROPIUM 3 ML (DUONEB) VIAL INH ONE (15:30)
[2017-11-21] MEDS ORDERED: predniSONE 20 MG TAB PO ONE (15:30)
[2017-11-21] MEDS ORDERED: SPIR100T4 (15:41)
[2017-11-21] MEDS ORDERED: DULO30CA48 (15:41)
[2017-11-21] MEDS ORDERED: ESTR2TAB (15:41)
[2017-11-21] MEDS ORDERED: ALBU18HF2 (15:41)
== END 2017-11-21 15:50 | disposition home or self-care (01) ==
LOC: EDUNIT# 15:20 → ER 15:21
DX: J45.901 Unspecified asthma with (acute) exacerbation (principal); Z88.8 Allergy status to other drugs, medicaments and biological substances; Z79.52 Long term (current) use of systemic steroids
CPT/HCPCS: 99282

== ENCOUNTER 2018-11-02 14:41 | Emergency (ER) | payer OTHER ==
[~2018-11-02] VITALS: Ht 175.2 cm; Wt 74.0 kg
[~2018-11-02 14:41] MED LIST changes: +ALBU18HF2; +DULO30CA49; +ESTR2TAB; -RT-ALBUTEROL/IPRATROPIUM 3 ML (DUONEB) VIAL ONE; +SPIR100T4; -methylPREDNISolone 125 MG (Solu-MEDROL) VIAL ONE
--- NOTE | 2018-11-02 14:51 | NUR ---
breathing treatment administered by this rn
[2018-11-02 14:52] LABS: BASOPHILS # (AUTO) 0.1 10^3/uL (0.0-0.1); BASOPHILS % (AUTO) 1 % (0-10); EOSINOPHILS # (AUTO) 0.4 10^3/uL (0.0-0.3); EOSINOPHILS % (AUTO) 3 % (0-10); HEMATOCRIT 48 % (40-54); HEMOGLOBIN 17.1 G/DL (13.3-17.7); LYMPHOCYTES # (AUTO) 2.6 X 10^3 (1.0-4.0); LYMPHOCYTES % (AUTO) 20 % (12-44); MEAN CORPUSCULAR HEMOGLOBIN 31 PG (25-34); MEAN CORPUSCULAR HGB CONC 36 G/DL (32-36); MEAN CORPUSCULAR VOLUME 86 FL (80-99); MEAN PLATELET VOLUME 9.6 FL (7.4-10.4); MONOCYTES % (AUTO) 8 % (0-12); NEUTROPHILS # (AUTO) 8.7 X 10^3 (1.8-7.8); NEUTROPHILS % (AUTO) 68 % (42-75); PLATELET COUNT 306 10^3/uL (130-400); RED CELL DISTRIBUTION WIDTH 12.2 % (10.0-14.5); WHITE BLOOD COUNT 12.7 10^3/uL (4.3-11.0)
--- NOTE | 2018-11-02 14:52 | ED Psychosocial ---
General Chief Complaint: Psych/Social Disorder Stated Complaint: ANXIETY Source: patient Exam Limitations: no limitations History of Present Illness Date Seen by Provider: Nov 02, 2018 Time Seen by Provider: 14:47 Initial Comments To ER per private vehicle boat he was unable to get out of the car on her own, had to be brought in by wheelchair. Reports anxiety, history of dissociative identity disorder and "shuts down anything scares" according to the friend pat marvint her. As a biologic male who identifies as female and prefers to be called Tosin. States that she takes duloxetine prescribed through [facility] and a new medicine he started today, unsure of the name of it but states it is for mental health. Very difficult to obtain any information other than 1 word answers from her. Timing/Duration: constant Severity: moderate Associated Symptoms: anxiety Allergies and Home Medications Allergies Coded Allergies: metoclopramide (Verified Allergy, Unknown, 11/21/17) Home Medications Prednisone 20 Mg Tab, 40 MG PO ONCE Prescribed by: CESAR VERONICA on 10/18/172038 Prednisone 20 Mg Tab, 40 MG PO DAILY Prescribed by: CESAR VERONICA on 11/21/17 1547 Patient Home Medication List Home Medication List Reviewed: Yes Review of Systems Constitutional: see HPI EENTM: see HPI Respiratory: no symptoms reported Cardiovascular: no symptoms reported Genitourinary: no symptoms reported Musculoskeletal: no symptoms reported Skin: no symptoms reported Psychiatric/Neurological: See HPI, Anxiety Past Urujhes-Lpeywa-Tulphq Hx Patient Social History Alcohol Use: Denies Use Recreational Drug Use: No Smoking Status: Never a Smoker 2nd Hand Smoke Exposure: No Recent Foreign Travel: No Contact w/Someone Who Travel: No Recent Hopitalizations: No Physical Abuse: No Sexual Abuse: No Mistreated: No Fear: No Seasonal Allergies Seasonal Allergies: No Past Medical History Surgeries: No Respiratory: Yes Asthma Cardiac: Yes (svt) Neurological: No Genitourinary: No Gastrointestinal: No Musculoskeletal: No Endocrine: No HEENT: No Cancer: No Psychosocial: Yes (dissociative id disorder) Integumentary: No Adverse Reaction/Blood Tranf: No Physical Exam Vital Signs - First Documented 11/02/18 14:44 Temp 37.5 Pulse 112 Resp 22 B/P (MAP) 141/80 (100) O2 Delivery Room Air Capillary Refill : Height, Weight, BMI Height: 5'7.00" Weight: 130lbs. oz. 58.445358hv; 14.06 BMI Method:Stated General Appearance: WD/WN, no apparent distress, other (shaking all extremities, states arms and feet are numb, he denies closed, hyperventilating, answers in one word answers. There is a bit of expiratory wheezing and she does have a known history of asthma from previous visits here,) HEENT: PERRL/EOMI, normal ENT inspection Neck: non-tender, full range of motion Respiratory: no respiratory distress, no accessory muscle use Cardiovascular: No JVD; tachycardia (110) Gastrointestinal: normal bowel sounds, non tender, soft Extremities: normal range of motion, non-tender Neurologic/Psychiatric: alert, normal mood/affect, oriented x 3 Appearance/Memory: disheveled Behavior/Eye Contact: avoids eye contact, refused to answer Skin: normal color, warm/dry Progress/Results/Core Measures Results/Orders Lab Results Laboratory Tests Test 11/02/18 14:45 Range/Units White Blood Count 12.7 H 4.3-11.0 10^3/uL Red Blood Count 5.57 4.35-5.85 10^6/uL Hemoglobin 17.1 13.3-17.7 G/DL Hematocrit 48 40-54 % Mean Corpuscular Volume 86 80-99 FL Mean Corpuscular Hemoglobin 31 25-34 PG Mean Corpuscular Hemoglobin Concent 36 32-36 G/DL Red Cell Distribution Width 12.2 10.0-14.5 % Platelet Count 306 130-400 10^3/uL Mean Platelet Volume 9.6 7.4-10.4 FL Neutrophils (%) (Auto) 68 42-75 % Lymphocytes (%) (Auto) 20 12-44 % Monocytes (%) (Auto) 8 0-12 % Eosinophils (%) (Auto) 3 0-10 % Basophils (%) (Auto) 1 0-10 % Neutrophils # (Auto) 8.7 H 1.8-7.8 X 10^3 Lymphocytes # (Auto) 2.6 1.0-4.0 X 10^3 Monocytes # (Auto) 1.0 0.0-1.0 X 10^3 Eosinophils # (Auto) 0.4 H 0.0-0.3 10^3/uL Basophils # (Auto) 0.1 0.0-0.1 10^3/uL Sodium Level 139 135-145 MMOL/L Potassium Level 4.1 3.6-5.0 MMOL/L Chloride Level 105 98-107 MMOL/L Carbon Dioxide Level 25 21-32 MMOL/L Anion Gap 9 5-14 MMOL/L Blood Urea Nitrogen 9 7-18 MG/DL Creatinine 0.84 0.60-1.30 MG/DL Estimat Glomerular Filtration Rate > 60 BUN/Creatinine Ratio 11 Glucose Level 95 70-105 MG/DL Calcium Level 9.8 8.5-10.1 MG/DL Corrected Calcium 8.5-10.1 MG/DL Total Bilirubin 1.6 H 0.1-1.0 MG/DL Aspartate Amino Transf (AST/SGOT) 18 5-34 U/L Alanine Aminotransferase (ALT/SGPT) 15 0-55 U/L Alkaline Phosphatase 121 40-136 U/L Total Protein 7.8 6.4-8.2 GM/DL Albumin 4.9 H 3.2-4.5 GM/DL My Orders Orders - CESAR VERONICA HUM[employer] INSTRUCTOR Albuterol/Ipra Inhalation Soln (Duoneb I (11/02/18 15:00) Lorazepam Injection (Ativan Injection) (11/02/18 15:00) Svn Small Volume Nebulizer (11/02/18 14:46) Cbc With Automated Diff (11/02/18 14:46) Comprehensive Metabolic Panel (11/02/18 14:46) Ed Iv/Invasive Line Start (11/02/18 14:46) Lorazepam Injection (Ativan Injection) (11/02/18 15:30) Medications Given in ED Current Medications Medications Dose Ordered Sig/Venkatesh Route Start Time Stop Time Status Last Admin Dose Admin Albuterol/ Ipratropium 3 ml ONCE ONCE INH 11/02/18 15:00 11/02/18 15:01 DC 11/02/18 14:51 3 ML Lorazepam 1 mg ONCE ONCE IVP 11/02/18 15:00 11/02/18 15:01 DC 11/02/18 14:52 1 MG Vital Signs/I&O 11/02/18 14:44 Temp 37.5 Pulse 112 Resp 22 B/P (MAP) 141/80 (100) O2 Delivery Room Air Departure Communication (Admissions) 8006-states she still feels anxious but overall appears much better, given additional 0.5 mg of lorazepam IV then discharged to home. According to the female friend at the bedside, when the patient is in this state and can't seem to speak she will The pointer finger once for "yes" and twice for "no" Impression Primary Impression: Anxiety Additional Impression: Behavioral disorder Disposition: 01 HOME, SELF-CARE Condition: Stable Departure-Patient Inst. Decision time for Depature: 15:24 Referrals: [facility] (PCP/Family) Primary Care Physician Patient Instructions: Panic Disorder (DC) CESAR VERONICA APRN Nov 02, 2018 14:51
--- NOTE | 2018-11-02 14:55 | NUR ---
friend in room with patient, patient is retiing quietly appears to be in no distress at this time. shakes head yes when asked if "she" is feeling better. call light with in reach. will continue to monitor.
[2018-11-02] MEDS ORDERED: RT-ALBUTEROL/IPRATROPIUM 3 ML (DUONEB) VIAL INH ONE (15:00)
[2018-11-02] MEDS ORDERED: LORazepam INJ 2 MG/ML (ATIVAN) VIAL IVP ONE (15:00)
[2018-11-02 15:14] LABS: ALANINE AMINOTRANSFERASE 15 U/L (0-55); ALBUMIN 4.9 GM/DL (3.2-4.5); ALKALINE PHOSPHATASE 121 U/L (40-136); BILIRUBIN,TOTAL 1.6 MG/DL (0.1-1.0); BUN/CREATININE RATIO 11; CALCIUM 9.8 MG/DL (8.5-10.1); CARBON DIOXIDE 25 MMOL/L (21-32); CHLORIDE 105 MMOL/L (98-107); CREATININE SERUM 0.84 MG/DL (0.60-1.30); GFR ESTIMATED > 60; GLUCOSE 95 MG/DL (70-105); POTASSIUM 4.1 MMOL/L (3.6-5.0); SODIUM 139 MMOL/L (135-145); TOTAL PROTEIN 7.8 GM/DL (6.4-8.2)
[2018-11-02] MEDS ORDERED: LORazepam INJ 2 MG/ML (ATIVAN) VIAL IVP PRN (15:30)
[2018-11-02 15:35] VITALS: BP 141/80
== END 2018-11-02 15:35 | disposition home or self-care (01) ==
LOC: EDUNIT# 14:41 → ER 14:44
DX: F41.9 Anxiety disorder, unspecified (principal); F91.8 Other conduct disorders; J45.909 Unspecified asthma, uncomplicated; F44.81 Dissociative identity disorder; Z88.8 Allergy status to other drugs, medicaments and biological substances; Z79.52 Long term (current) use of systemic steroids
CPT/HCPCS: 36415; 80053; 85025; 96374; 96376

== ENCOUNTER 2018-11-09 20:25 | Emergency (ER) | payer OTHER ==
[~2018-11-09] VITALS: Ht 175 cm; Wt 59.0 kg
--- NOTE | 2018-11-09 20:32 | ED General ---
General Stated Complaint: DRUG USE Source of Information: Patient Exam Limitations: No Limitations History of Present Illness Date Seen by Provider: Nov 09, 2018 Time Seen by Provider: 20:29 Initial Comments To ER with reports of feeling as though time is moving slowly and difficulty remembering after smoking marijuana to his pain this evening. He called police to report this then called an ambulance. Timing/Duration: 1/2 Hour Severity: Moderate Associated Systoms: Denies Symptoms Allergies and Home Medications Allergies Coded Allergies: metoclopramide (Verified Allergy, Unknown, 11/21/17) Home Medications Prednisone 20 Mg Tab, 40 MG PO ONCE Prescribed by: CESAR VERONICA on 10/18/172038 Prednisone 20 Mg Tab, 40 MG PO DAILY Prescribed by: CESAR VERONICA on 11/21/17 1547 Patient Home Medication List Home Medication List Reviewed: Yes Review of Systems Review of Systems Constitutional: see HPI EENTM: see HPI Respiratory: no symptoms reported Cardiovascular: no symptoms reported Genitourinary: no symptoms reported Musculoskeletal: no symptoms reported Skin: no symptoms reported Psychiatric/Neurological: No Symptoms Reported Hematologic/Lymphatic: No Symptoms Reported Immunological/Allergic: no symptoms reported Past Qzczvuu-Fgshio-Meuffx Hx Patient Social History 2nd Hand Smoke Exposure: No Recent Foreign Travel: No Contact w/Someone Who Travel: No Recent Hopitalizations: No Seasonal Allergies Seasonal Allergies: No Past Medical History Surgeries: No Respiratory: Yes Asthma Cardiac: Yes (svt) Neurological: No Genitourinary: No Gastrointestinal: No Musculoskeletal: No Endocrine: No HEENT: No Cancer: No Psychosocial: Yes (dissociative id disorder) Integumentary: No Adverse Reaction/Blood Tranf: No Physical Exam Vital Signs Capillary Refill : Height, Weight, BMI Height: 5'7.00" Weight: 130lbs. oz. 58.142206og; 24.00 BMI Method:Stated General Appearance: No Apparent Distress, WD/WN, Other (Smiling talkative alert pleasant. GCS 15. States he just feels "like everything is slow") Eyes: Bilateral Eye Normal Inspection, Bilateral Eye PERRL, Bilateral Eye EOMI Neck: Full Range of Motion, Normal Inspection Respiratory: Lungs Clear, Normal Breath Sounds, No Accessory Muscle Use, No Respiratory Distress Cardiovascular: Normal Peripheral Pulses, Tachycardia (105) Gastrointestinal: Non Tender, Soft Extremity: Normal Capillary Refill, Normal Inspection Neurologic/Psychiatric: Alert, Oriented x3, No Motor/Sensory Deficits Skin: Normal Color, Warm/Dry Progress/Results/Core Measures Suspected Sepsis SIRS Temperature: Pulse: Respiratory Rate: Blood Pressure / Mean: Results/Orders Vital Signs/I&O Capillary Refill : Departure Impression Primary Impression: Intoxication with marijuana Qualified Codes: F12.922 - Cannabis use, unspecified with intoxication with perceptual disturbance Disposition: HOME, SELF-CARE Condition: Stable Departure-Patient Inst. Decision time for Depature: 20:32 Referrals: [facility] (PCP/Family) Primary Care Physician Patient Instructions: NO INSTRUCTIONS GIVEN Add. Discharge Instructions: 1. Return to ER for any concerns 2. Follow-up with your doctor next week 3. CESAR VERONICA IMMIGRATION CASE WORKER Nov 09, 2018 20:32
[2018-11-09 21:34] VITALS: BP 145/85
== END 2018-11-09 21:34 | disposition home or self-care (01) ==
LOC: EDUNIT# 20:25 → ER 20:26
DX: F12.929 Cannabis use, unspecified with intoxication, unspecified (principal); J45.909 Unspecified asthma, uncomplicated; F44.81 Dissociative identity disorder; Z88.8 Allergy status to other drugs, medicaments and biological substances
CPT/HCPCS: 99283